=== PATIENT | female | born 1970 | race Two or more races ===

== ENCOUNTER 2017-04-19 10:23 | Emergency (ER) | payer MEDICAID ==
[2017-04-19] MEDS ORDERED: Codeine/Promethazine Susp 5 mL UDC PO STA (11:08)
[2017-04-19] MEDS ORDERED: Codeine/Promethazine Susp 5 mL UDC ONE (11:10)
[2017-04-19 11:36] LABS: % BASOPHILS 0.7 % (0.0-2.0); % EOSINOPHILS 2.7 % (0.0-5.0); % LYMPHOCYTES 18.2 % (20.0-50.0); % MONOCYTES 7.1 % (2.0-10.0); % NEUTROPHILS 71.3 % (40.0-80.0); BASOPHILE ABSOLUTE 0.1 Th/cumm (0-0.2); EOSINOPHILE ABSOLUTE 0.2 Th/cmm (0.1-0.4); HEMATOCRIT 38.7 % (41.0-60); HEMOGLOBIN 12.7 gm/dL (12-16); LYMPHOCYTE ABSOLUTE 1.4 Th/cmm (1.5-3.0); MEAN CELL VOLUME 82.5 fl (81-100); MEAN CORPUSCULAR HGB CONC 32.7 pg (28.0-36.0); MEAN PLATELET VOLUME 7.5 fl; MONOCYTE ABSOLUTE 0.5 Th/cmm (0.3-1.0); NEUTROPHILE ABSOLUTE 5.3 Th/cmm (1.8-8.0); PLATELET COUNT 397 Th/cmm (150-400); RED BLOOD COUNT 4.69 Mil/cmm (3.80-5.10); WHITE BLOOD COUNT 7.5 Th/cmm (4.8-10.8)
--- NOTE | 2017-04-19 12:39 | ED Physician Chart ---
ED Chief Complaint/HPI - Patient Information Date Seen:: 04/19/17 Time Seen:: 10:30 Chief Complaint:: COUGH X 4 DAYS History of Present Illness:: THE PT HAS HAD A SEVERE COUGH PRODUCTIVE OF GREEN SPUTUM AND ACCOMPANIED BY FEVER TO 101 WITH CHILLS AND DIAPHORESIS. PT HAS PAIN IN THE ANTERIOR ABDOMEN FROM COUGHING. NO ASSOCIATED DYSPNEA OR DIFFICULTY BREATHING. NO HEMOPTYSIS. HAS HAD ANOREXIA AND NAUSEA. NO VOMITING OR DIARRHEA. PT HAS PAIN IN LOWER ABD FROM COUGHING. Allergies:: Allergies Allergy/AdvReac Type Severity Reaction Status Date / Time No Known Allergies Allergy Verified 04/19/17 10:32 Vitals:: Vital Signs - 8 hr 04/19/17 04/19/17 10:35 12:04 Temp 99.9 F 98.2 F HR 102 75 RR 18 BP 108/87 O2 Sat % 95 Historian:: Patient Review:: Nurse's Note Reviewed (nursing triage notes reviewed this was on paper and not the electronic medical record.) ED Review of Systems - Review of Systems General/Constitutional: Fever, Chills, No weight loss, No weakness, Diaphoresis , No edema, Loss of appetite Skin: No skin lesions, No rash, No bruising Head: No headache, No light-headedness Eyes: No loss of vision, No diplopia ENT: No earache, No nasal drainage, No sore throat, No tinnitus Neck: No neck pain, No thyromegaly, No stiffness, No mass noted Cardio Vascular: No chest pain, No palpitations, No PND, No orthopnea, edema Pulmonary: No SOB, Cough, Sputum, No wheezing (THE COUGH WAS PRODUCTIVE OF GREEN SPUTUM. NO HEMOPTYSIS.) GI: Nausea, No vomiting, Pain ( THE PATIENT HAS PAIN WITH COUGH IN A BAND LIKE DISTRIBUTION ACROSS HER LOWER ABDOMEN.), No constipation, No hematemesis G/U: No dysuria, No frequency, No hematuria Seo Specialist: No abnormal vaginal bleed ( THE PATIENT HAS MENSTRUAL BLEEDING AT THIS TIME.) Musculoskeletal: No bone or joint pain, No back pain, No muscle pain Endocrine: No polyuria, No polydipsia Psychiatric: Prior psych history, No prior psych history, No depression, No anxiety, No suicidal ideation, No homicidal ideation Hematopoietic: No bruising, No lymphadenopathy Allergic/Immuno: No urticaria, No angioedema Neurological: No syncope, No focal symptoms, No weakness, No paresthesia, No headache, No seizure, No dizziness, No confusion, No vertigo ED Past Medical History - Past Medical History Obtainable: Yes Past Medical History: No significant medical hx ( NO PAST MEDICAL HISTORY OF DVT OR PE. NO CHF, NON-SMOKER) Family History: DVT/PE Social History: Non Smoker, No Alcohol, No Drug Use, , Employed ( B[employer]ING M[employer]INE [employer] AT [employer]) Psychiatricy History: None Family Medical History - Family Member Mother History Unknown: Yes Father Ethnicity: Living Status: Hx Family Diabetes: Yes ED Physical Exam - Physical Examination General/Constitutional: Well-developed, well-nourished, Alert, Non-toxic appearing, Ambulatory Other Gen/Cons comments:: Mild to moderate distress from frequent coughing. Head: Atraumatic Eyes: Lids, conjuctiva normal, PERRL, EOMI Skin: Nl inspection, No rash, No skin lesions, No ecchymosis, Well hydrated, No lymphadenopathy ENMT: External ears, nose nl, TM canals nl, Nasal exam nl, Lips, teeth, gums nl , Oropharynx nl, Tonsils nl Neck: Nontender, Full ROM w/o pain, No JVD, No nuchal rigidity, No bruit, No mass, No stridor ED Labs/Radiology/EKG Results - Lab Results Results: Laboratory Tests 04/19/17 11:27 WBC 7.5 RBC 4.69 Hgb 12.7 Hct 38.7 L MCV 82.5 MCH 27.0 MCHC Differential 32.7 RDW 15.0 Plt Count 397 MPV 7.5 Neutrophils % 71.3 Lymphocytes % 18.2 L Monocytes % 7.1 Eosinophils % 2.7 Basophils % 0.7 Laboratory results: The CBC is unremarkable with a white count of 7.5 and a hemoglobin level of 12.7. Platelet count is within the normal range. Single view chest x-ray: Patient has borderline cardiomegaly. No CHF. No mediastinal widening. No pneumothorax. No areas of pulmonary consolidation or infiltrate. Impression: No acute cardiopulmonary findings. ED Assessment - Assessment General Assessment: CASE SUMMARY: THIS 46-YEAR-OLD FEMALE PRESENTS WITH A FOUR-DAY HISTORY OF SEVERE COUGH WHICH KEEPS HER AWAKE AT NIGHT. THE COUGH IS PRODUCTIVE OF GREEN SPUTUM AND IS ACCOMPANIED BY FEVER TO 101 AND SHAKING CHILLS AND THEN DIAPHORESIS. DENIES ANY ASSOCIATED RESPIRATORY DISTRESS AND NO HEMOPTYSIS. ON PHYSICAL EXAMINATION SHE HAS RHONCHI IN THE LEFT BASE. NO RALES OR WHEEZING PRESENT. THE CBC WAS ESSENTIALLY NORMAL. CHEST X-RAY SHOWED BORDERLINE CARDIOMEGALY WITH NO AREAS OF PULMONARY CONSOLIDATION OR INFILTRATE. MY IMPRESSION WAS NO ACUTE CARDIOPULMONARY FINDINGS. THE PATIENT WAS GIVEN 2 PRESCRIPTIONS THE FIRST WAS FOR A Z-ROWENA. AND THE SECOND WAS FOR PHENERGAN WITH CODEINE TO USE AT NIGHT FOR THE COUGH. PATIENT WAS DISCHARGED IN STABLE CONDITION. MDM DIFFERENTIAL DIAGNOSIS for COUGH: NOT PNEUMONIA based on chest x-ray. NOT foreign body aspiration based on patient's history. NOT pharyngitis placed on physical examination. ED Septic Shock - . Is Septic Shock (SBP<90, OR Lactate>4 mmol\L) present?: No - <6hrs of presentation: Vital Signs: Vital Signs - 8 hr 04/19/17 04/19/17 10:35 12:04 Temp 99.9 F 98.2 F HR 102 75 RR 18 BP 108/87 O2 Sat % 95 ED Reassessment (Disposition) - Reassessment Reassessment:: MARKEDLY IMPROVED BY THE TIME OF DISCHARGE. Reassessment Condition:: Improved - Diagnosis Diagnosis:: ACUTE BRONCHITIS RETURN TO THE EMERGENCY DEPARTMENT IF YOU'RE SYMPTOMS SIGNIFICANTLY WORSENED OR IF YOU DEVELOP DIFFICULTY BREATHING, COUGHING UP BLOOD FEVERS GREATER THAN 102. OTHERWISE FOLLOW UP WITH YOUR PRIMARY CARE PHYSICIAN THIS COMING WEEK IF YOUR SYMPTOMS HAVE NOT IMPROVED OR RESOLVED. - Aftercare/Follow up Instructions Aftercare/Follow-Up Instructions:: Counseled pt regarding lab results/diagnosis & need follow up, Counseled pt & family regarding lab results/diagnosis & need follow up - Patient Disposition Discharge/Transfer:: Home ED Discharge Plan - Patient Disposition Admit/Discharge/Transfer: PT DISCHARGED HOME Condition at Disposition: Improved Instructions: Bronchitis, [id number]
--- NOTE | 2017-04-20 09:33 | Diagnostic Imaging Report ---
CHEST X-RAY: AP view INDICATION: Cough and fever COMPARISON: None FINDINGS: Increased interstitial lung markings are noted. There is elevation of the right hemidiaphragm. No focal consolidation or effusions. Borderline prominent heart is noted. Degenerative changes spine are noted with mild scoliosis. There is evidence of calcific tendinitis of the bilateral shoulders. IMPRESSION: Increased interstitial lung markings, nonspecific and may be chronic, however, a mild degree of congestion cannot be excluded. Please correlate with clinical findings. No focal consolidation identified. Borderline cardiomegaly.
== END 2017-04-19 12:25 | disposition home or self-care (01) ==
LOC: ER 10:23
DX: J20.9 Acute bronchitis, unspecified (principal)
CPT/HCPCS: 36415-UA; 71045-TC; 85025-TC

== ENCOUNTER 2017-12-30 20:34 | Emergency (ER) | payer MEDICAID ==
--- NOTE | 2017-12-30 21:17 | ED Physician Chart ---
ED Chief Complaint/HPI - Patient Information Date Seen:: 12/30/17 Time Seen:: 21:17 Chief Complaint:: Nausea, vomiting, diarrhea History of Present Illness:: 47 yo female presented to ER due to nausea, vomiting 4 times and diarrhea 20 times with associated lower abdominal cramping for 1 day. Allergies:: Allergies Allergy/AdvReac Type Severity Reaction Status Date / Time No Known Allergies Allergy Verified 04/19/17 10:32 Vitals:: Vital Signs - 8 hr 12/30/17 20:40 Temp 99.1 F HR 94 RR 18 BP 129/71 O2 Sat % 95 ED Review of Systems - Review of Systems General/Constitutional: Fever, No chills Skin: No bruising Head: No headache Eyes: No pain ENT: No earache, No nasal drainage Neck: No neck pain Cardio Vascular: No chest pain Pulmonary: No SOB GI: Nausea, Vomiting, Diarrhea Musculoskeletal: No bone or joint pain Neurological: No focal symptoms ED Past Medical History - Past Medical History Past Medical History: No significant medical hx Social History: Non Smoker, No Alcohol, No Drug Use Surgical History: (x 5) Family Medical History - Family Member Mother History Unknown: Yes Father Ethnicity: Living Status: Hx Family Diabetes: Yes ED Physical Exam - Physical Examination General/Constitutional: Awake, Alert Head: Atraumatic Eyes: PERRL Skin: No skin lesions ENMT: Nasal exam nl Neck: No nuchal rigidity Respiratory: Clear to Auscultation Cardio Vascular: RRR, No murmur, gallop, rubs, NL S1 S2 GI: Nondistended Other GI comments:: periumbilical tenderness Extremities: normal strength in all extremities Neuro/Psych: No focal deficits ED Labs/Radiology/EKG Results - Lab Results Results: Laboratory Last Values WBC 10.0 Th/cmm (4.8-10.8) 12/30/17 21:15 RBC 5.04 Mil/cmm (3.80-5.10) 12/30/17 21:15 Hgb 13.1 gm/dL (12-16) 12/30/17 21:15 Hct 39.9 % (41.0-60) L 12/30/17 21:15 MCV 79.2 fl (81-100) L 12/30/17 21:15 MCH 26.0 pg (27.0-31.0) L 12/30/17 21:15 MCHC Differential 32.8 pg (28.0-36.0) 12/30/17 21:15 RDW 15.5 % (11.5-20.0) 12/30/17 21:15 Plt Count 409 Th/cmm (150-400) H 12/30/17 21:15 MPV 7.5 fl 12/30/17 21:15 Add Manual Diff YES 12/30/17 21:15 Neutrophils % BRUSH MAKER MACHINE 12/30/17 21:15 Band Neutrophils % 2 % (0-10) 12/30/17 21:15 Lymphocytes % BRUSH MAKER MACHINE 12/30/17 21:15 Monocytes % BRUSH MAKER MACHINE 12/30/17 21:15 Eosinophils % BRUSH MAKER MACHINE 12/30/17 21:15 Basophils % BRUSH MAKER MACHINE 12/30/17 21:15 Neutrophils (Manual) 90 % (40-80) H 12/30/17 21:15 Lymphocytes 5 % (20-50) L 12/30/17 21:15 Monocytes 3 % (2-10) 12/30/17 21:15 Platelet Estimate ADEQUATE (NORMAL) 12/30/17 21:15 Sodium 136 mEq/L (136-145) 12/30/17 21:15 Potassium 3.7 mEq/L (3.5-5.1) 12/30/17 21:15 Chloride 104 mEq/L (98-107) 12/30/17 21:15 Carbon Dioxide 22.3 mEq/L (21.0-31.0) 12/30/17 21:15 Anion Gap 13.4 (7.0-16.0) 12/30/17 21:15 BUN 13 mg/dL (7-25) 12/30/17 21:15 Creatinine 0.8 mg/dL (0.6-1.2) 12/30/17 21:15 Est GFR ( Amer) > 60.0 ml/min (>90) 12/30/17 21:15 Est GFR (Non-Af Amer) > 60.0 ml/min 12/30/17 21:15 BUN/Creatinine Ratio 16.3 12/30/17 21:15 Glucose 116 mg/dL (70-105) H 12/30/17 21:15 Calcium 8.7 mg/dL (8.6-10.3) 12/30/17 21:15 Total Bilirubin 0.4 mg/dL (0.3-1.0) 12/30/17 21:15 AST 16 U/L (13-39) 12/30/17 21:15 ALT 16 U/L (7-52) 12/30/17 21:15 Alkaline Phosphatase 125 U/L (34-104) H 12/30/17 21:15 Total Protein 7.2 gm/dL (6.0-8.3) 12/30/17 21:15 Albumin 3.8 gm/dL (3.7-5.3) 12/30/17 21:15 Globulin 3.4 gm/dL 12/30/17 21:15 Albumin/Globulin Ratio 1.1 (1.0-1.8) 12/30/17 21:15 Lipase 9 U/L (11-82) L 12/30/17 21:15 Urine Source RANDOM 12/30/17 21:13 Urine Color YELLOW 12/30/17 21:13 Urine Clarity CLEAR (CLEAR) 12/30/17 21:13 Urine pH 6.0 (4.6 - 8.0) 12/30/17 21:13 Ur Specific Kirkman >= 1.030 (1.005-1.030) 12/30/17 21:13 Urine Protein NEGATIVE mg/dL (NEGATIVE) 12/30/17 21:13 Urine Glucose (UA) NEGATIVE mg/dL (NEGATIVE) 12/30/17 21:13 Urine Ketones NEGATIVE mg/dL (NEGATIVE) 12/30/17 21:13 Urine Blood NEGATIVE (NEGATIVE) 12/30/17 21:13 Urine Nitrate NEGATIVE (NEGATIVE) 12/30/17 21:13 Urine Bilirubin NEGATIVE (NEGATIVE) 12/30/17 21:13 Urine Urobilinogen 0.2 E.U./dL (0.2 - 1.0) 12/30/17 21:13 Ur Leukocyte Esterase NEGATIVE (NEGATIVE) 12/30/17 21:13 Urine Test NEGATIVE 12/30/17 21:13 ED Assessment - Assessment General Assessment: Gastroenteritis Assessment/Comments:: CBC, CMP, lipase Zofran ODT 4mg PO Pantoprazole 40mg PO Ciprofloxacin 500mg PO D/c home Ciprofloxacin 500mg PO bid x 7 days F/u PCP or return to ER if symptoms worsen ED Septic Shock - . Is Septic Shock (SBP<90, OR Lactate>4 mmol\L) present?: No - <6hrs of presentation: Vital Signs: Vital Signs - 8 hr 12/30/17 20:40 Temp 99.1 F HR 94 RR 18 BP 129/71 O2 Sat % 95 ED Reassessment (Disposition) - Reassessment Reassessment Condition:: Improved - Aftercare/Follow up Instructions Medication Prescribed:: Ciprofloxacin 500mg bid x 7 days - Patient Disposition Discharge/Transfer:: Home
[2017-12-30 21:42] LABS: URINE SOURCE RANDOM
[2017-12-30 21:46] LABS: HEMATOCRIT 39.9 % (41.0-60); HEMOGLOBIN 13.1 gm/dL (12-16); MEAN CELL VOLUME 79.2 fl (81-100); MEAN CORPUSCULAR HGB CONC 32.8 pg (28.0-36.0); MEAN PLATELET VOLUME 7.5 fl; PLATELET COUNT 409 Th/cmm (150-400); RED BLOOD COUNT 5.04 Mil/cmm (3.80-5.10); RED CELL DISTRIBUTION WIDTH 15.5 % (11.5-20.0)
[2017-12-30 21:51] LABS: URINE BILIRUBIN NEGATIVE (NEGATIVE); URINE BLOOD NEGATIVE (NEGATIVE); URINE GLUCOSE (UA) NEGATIVE (NEGATIVE); URINE KETONE NEGATIVE (NEGATIVE); URINE LEUKOCYTE ESTERASE NEGATIVE (NEGATIVE); URINE NITRATE NEGATIVE (NEGATIVE); URINE PROTEIN NEGATIVE (NEGATIVE); URINE UROBILINOGEN 0.2 E.U./dL (0.2 - 1.0)
[2017-12-30 21:57] LABS: ALB/GLOB RATIO 1.1 (1.0-1.8); ALBUMIN 3.8 gm/dL (3.7-5.3); ALKALINE PHOSPHATASE 125 U/L (34-104); ANION GAP 13.4 (7.0-16.0); BILIRUBIN,TOTAL 0.4 mg/dL (0.3-1.0); BUN - UREA NITROGEN 13 mg/dL (7-25); CALCIUM SERUM 8.7 mg/dL (8.6-10.3); CARBON DIOXIDE 22.3 mEq/L (21.0-31.0); CHLORIDE 104 mEq/L (98-107); CREATININE - SERUM 0.8 mg/dL (0.6-1.2); GFR AFRICAN-AMERICAN > 60.0 ml/min (>90); GFR NON AFRICAN-AMERICAN > 60.0 ml/min; GLUCOSE 116 mg/dL (70-105); LIPASE 9 U/L (11-82); POTASSIUM SERUM 3.7 mEq/L (3.5-5.1); SGOT 16 U/L (13-39); SGPT/ALT 16 U/L (7-52); SODIUM SERUM 136 mEq/L (136-145); TOTAL PROTEIN,SERUM 7.2 gm/dL (6.0-8.3)
[2017-12-30 22:10] LABS: URINE CLARITY CLEAR (CLEAR); URINE COLOR YELLOW; URINE MICROSCOPIC INDICATED? NO
[2017-12-30] MEDS ORDERED: Pantoprazole 40 mg EC Tab PO STA (22:16)
[2017-12-30] MEDS ORDERED: Pantoprazole 40 mg EC Tab PO ONE (22:17)
[2017-12-31 05:57] LABS: BAND NEUTROPHILE 2 % (0-10); LYMPHOCYTE 5 % (20-50); MONOCYTE 3 % (2-10); NEUTROPHILS 90 % (40-80); PLATELET ESTIMATE ADEQUATE (NORMAL)
== END 2017-12-30 23:00 | disposition home or self-care (01) ==
LOC: ER 20:34
DX: K52.9 Noninfective gastroenteritis and colitis, unspecified (principal); Z98.890 Other specified postprocedural states
CPT/HCPCS: 99284; 36415; 85025; 81003; 81025; 83690; 80053; 85007 ×3; Q0162; Z7502; Z7610

== ENCOUNTER 2018-03-11 15:41 | Emergency (ER) | payer MEDICAID ==
--- NOTE | 2018-03-11 16:52 | ED Physician Chart ---
ED Chief Complaint/HPI - Patient Information Date Seen:: 03/11/18 Time Seen:: 16:00 Chief Complaint:: Fever History of Present Illness:: onset x 3 days of fever, cough, and congestion; pt denies trauma, LOC, ALOC, AMS , H/As, E/As, S/T, neck pain, C/P, SOB, Abd. 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 Allergies:: Allergies Allergy/AdvReac Type Severity Reaction Status Date / Time No Known Allergies Allergy Verified 04/19/17 10:32 Vitals:: Vital Signs - 8 hr 03/11/18 03/11/18 16:01 16:18 Temp 98.1 F 98.1 F HR 86 86 RR 16 BP 133/84 O2 Sat % 96 Historian:: Patient Review:: Nurse's Note Reviewed, Old Chart Reviewed ED Review of Systems - Review of Systems General/Constitutional: Fever, No chills, No weight loss, No weakness, No diaphoresis, No edema, No loss of appetite Skin: No skin lesions, No rash, No bruising Head: No headache, No light-headedness Eyes: No loss of vision, No pain, No diplopia ENT: No earache, Nasal drainage, No sore throat, No tinnitus Neck: No neck pain, No swelling, No thyromegaly, No stiffness, No mass noted Cardio Vascular: No chest pain, No palpitations, No PND, No orthopnea, No edema Pulmonary: No SOB, Cough, No sputum, No wheezing GI: No nausea, No vomiting, No diarrhea, No pain, No melena, No hematochezia, No constipation, No hematemesis G/U: No dysuria, No frequency, No hematuria, No nacturia Flower Planter: No vaginal discharge, No abnormal vaginal bleed, No contraction Musculoskeletal: No bone or joint pain, No back pain, No muscle pain Endocrine: No polyuria, No polydipsia Psychiatric: No prior psych history, No depression, No anxiety, No suicidal ideation, No homicidal ideation, No auditory hallucination, No visual hallucination Hematopoietic: No bruising, No lymphadenopathy Allergic/Immuno: No urticaria, No angioedema Neurological: No syncope, No focal symptoms, No weakness, No paresthesia, No headache, No seizure, No dizziness, No confusion, No vertigo ED Past Medical History - Past Medical History Obtainable: Yes Past Medical History: No significant medical hx Family History: None Social History: Non Smoker, No Alcohol, No Drug Use, Surgical History: None Psychiatricy History: None Medication: Reviewed Family Medical History - Family Member Mother History Unknown: Yes Father History Unknown: Yes Ethnicity: Living Status: Hx Family Diabetes: Yes ED Physical Exam - Physical Examination General/Constitutional: Awake, Well-developed, well-nourished, Alert, No distress, GCS 15, Non-toxic appearing, Ambulatory Head: Atraumatic Eyes: Lids, conjuctiva normal, PERRL, EOMI Skin: Nl inspection, No rash, No skin lesions, No ecchymosis, Well hydrated, No lymphadenopathy ENMT: External ears, nose nl, TM canals nl, Nasal exam nl, Lips, teeth, gums nl , Oropharynx nl, Tonsils nl Other ENMT comments:: + Maxillary Sinus Tenderness; + Nasal Congestion Neck: Nontender, Full ROM w/o pain, No JVD, No nuchal rigidity, No bruit, No mass, No stridor Other Neck comments:: supple; no meningeal signs; no cervical tenderness Respiratory: Nl effort/Exclusion, Clear to Auscultation, No Wheeze/Rhonchi/Rales Cardio Vascular: RRR, No murmur, gallop, rubs, NL S1 S2, Carotid/Femoral/Distal pulses equal bilaterally GI: No tenderness/rebounding/guarding, No organomegaly, No hernia, Normal BS's, Nondistended, No mass/bruits, No McBurney tenderness, Rectum exam nl Other GI comments:: no pulsatile masses : No CVA tenderness Extremities: No tenderness or effusion, Full ROM, normal strength in all extremities, No edema, Normal digits & nails Neuro/Psych: Alert/oriented, DTR's symmetric, Normal sensory exam, Normal motor strength, Judgement/insight normal, Mood normal, Normal gait, No focal deficits Other Neuro/Psych comments:: no focal signs Misc: Normal back, No paraspinal tenderness ED Septic Shock - . Is Septic Shock (SBP<90, OR Lactate>4 mmol\L) present?: No - <6hrs of presentation: Vital Signs: Vital Signs - 8 hr 03/11/18 03/11/18 16:01 16:18 Temp 98.1 F 98.1 F HR 86 86 RR 16 BP 133/84 O2 Sat % 96 ED Reassessment (Disposition) - Reassessment Reassessment:: pt tolerated po fluids well in ER; pt is asymptomatic upon discharge Reassessment Condition:: Improved - Diagnosis Diagnosis:: Congestion; Sinusitis; Cough; Bronchitis; Fever; URI - Aftercare/Follow up Instructions Aftercare/Follow-Up Instructions:: Counseled pt regarding lab results/diagnosis & need follow up, Refer to Discharge Instructions, Counseled pt & family regarding lab results/diagnosis & need follow up Medication Prescribed:: Rx: Amoxicillin 500mg po tid x 10 days; Phenergan Cough Syrup: one teaspoon po qid prn cough; Cool Mist Vaporizer; Tylenol 500mg po qid prn fever; Encourage Fluids; take all medications as prescribed - Patient Disposition Discharge/Transfer:: Home Condition at Disposition:: Stable, Improved (RTER prn if existing s/s reoccur and/or get worse and/or any other new s/s occur; ACIs given for all above Dx; Refer to ENT Specialist/Community Integration Specialist [facility]; F/U with PMD in one day or prn; RTER prn if concerned)
== END 2018-03-11 16:20 | disposition home or self-care (01) ==
LOC: ER 15:41
DX: J40 Bronchitis, not specified as acute or chronic (principal); J32.9 Chronic sinusitis, unspecified; J06.9 Acute upper respiratory infection, unspecified
CPT/HCPCS: Z7502